=== PATIENT | female | born 1980 | race Caucasian/White ===

== ENCOUNTER 2019-04-01 00:25 | Emergency (ER) | payer MEDICAID ==
[~2019-04-01] VITALS: Ht 170.2 cm; Wt 60.0 kg
[~2019-04-01 00:25] MED LIST: ACET1TAB12 PO; GENT5DRO4 EACHEYE; PANT-47 PO; SUCR1ORA2 PO
[2019-04-01 00:44] VITALS: BP 131/86
[2019-04-01] MEDS ORDERED: PENI-88 PO (01:14)
[2019-04-01] MEDS ORDERED: HYDR-4353 PO (01:14)
[2019-04-01] MEDS ORDERED: morphine 4 MG/ML inj SYRINge IM ONE (01:15)
[2019-04-01] MEDS ORDERED: HYDROcodone/acetaminophen 10/325mg tab PO ONE (01:15)
[2019-04-01] MEDS ORDERED: penicillin V potassium 500mg tablet PO ONE (01:15)
== END 2019-04-01 02:27 | disposition home or self-care (01) ==
LOC: ER 00:26
DX: K08.89 Other specified disorders of teeth and supporting structures (principal); F41.9 Anxiety disorder, unspecified; F32.9 Major depressive disorder, single episode, unspecified; F12.90 Cannabis use, unspecified, uncomplicated; Z88.1 Allergy status to other antibiotic agents; Z79.899 Other long term (current) drug therapy
CPT/HCPCS: 96372; 99283; J2270

== ENCOUNTER 2020-09-24 19:15 | Emergency (ER) | payer MEDICAID ==
[~2020-09-24] VITALS: Ht 170.2 cm; Wt 65.9 kg
--- NOTE | 2020-09-24 20:00 | NUR ---
UNABLE TO GET BP. PT MOVING TOO MC
--- NOTE | 2020-09-24 20:39 | NUR ---
CHENG FATHER OF PT CALLED FOR UPDATE [phone]
--- NOTE | 2020-09-24 20:40 | NUR ---
PT ABLE TO AMBULATE TO DOOR, OPEN AND CLOSE ON OWN
--- NOTE | 2020-09-24 20:55 | NUR ---
PT EXITS ROOM AND IS CRYING STATING SHE IS IN PAIN. I ACKNOWLEDGED PTS COMPLAINT OF PAIN AND EXPLAINED THAT SHE IS NEXT TO BE SEEN PROVIDED A MORE EMERGENT PATIENT DOESN'T PRESENT IN THE MEANTIME. SHE IS UPSET THAT SHE IS BEING ASKED TO WAIT IN HER ROOM. THE DOOR IS CLOSED SECONDARY TO PTS LOUD CRYING DISRUPTING OTHER PATIENTS.
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
[2020-09-24] MEDS ORDERED: normal saline 1000ML IV soln IVB ONE (21:30)
[2020-09-24] MEDS ORDERED: ondansetron/PF 4mg/2ml inj IV ONE (21:30)
[2020-09-24] MEDS ORDERED: morphine 10mg/ml inj. IV ONE ×2 (21:30→21:35)
[2020-09-24] MEDS ORDERED: LORazepam 2 mg/ml vial IV ONE (21:30)
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
[2020-09-24 21:49] LABS: BASOPHILS % (AUTO) 0.5 % (0-1); EOSINOPHILS # (AUTO) 0.1 X10'3 (0-0.9); EOSINOPHILS % (AUTO) 0.8 % (0-6); HEMOGLOBIN 14.4 g/dl (12.0-16.0); LYMPHOCYTES # (AUTO) 2.4 X10'3 (1.1-4.8); LYMPHOCYTES % (AUTO) 26.9 % (21-51); MEAN CORPUSCULAR HEMOGLOBIN 32.8 PG (27.0-31.0); MEAN CORPUSCULAR HGB CONC 34.3 g/dL (33.0-36.5); MEAN CORPUSCULAR VOLUME 95.5 FL (78-98); MEAN PLATELET VOLUME 9.8 FL (7.4-10.4); MONOCYTES # (AUTO) 0.6 X10'3 (0-0.9); MONOCYTES % (AUTO) 7.4 % (2-12); NEUTROPHILS # (AUTO) 5.6 X10'3 (1.8-7.7); NEUTROPHILS % (AUTO) 64.4 % (42-75); PLATELET COUNT 195 X10'3 (140-440); RED BLOOD COUNT 4.39 X10'6 (4.20-5.60); RED CELL DISTRIBUTION WIDTH 12.8 % (11.5-14.5); WHITE BLOOD COUNT 8.8 X10'3 (4.5-11.0)
[2020-09-24 21:50] LABS: URINE HCG NEGATIVE (NEG)
[2020-09-24 21:53] LABS: CLARITY,URINE SLIGHTLY CLOUDY (Clear); COLOR,URINE YELLOW (Yellow); GLUCOSE, URINE NEGATIVE (Neg); KETONES,URINE NEGATIVE (Neg); LEUKOCYTE ESTERASE ,URINE NEGATIVE (Neg); NITRITES, URINE NEGATIVE (Neg); OCCULT BLOOD,URINE NEGATIVE (Neg); PROTEIN,URINE NEGATIVE (Neg); UROBILINOGEN,URINE 0.2 E.U/dL (0.2-1.0)
[2020-09-24 21:57] LABS: ALANINE AMINOTRANSFERASE 23 U/L (12-78); ALBUMIN 3.9 G/DL (3.4-5.0); ALBUMIN/GLOBULIN RATIO 1.1 (1.1-1.5); ALKALINE PHOSPHATASE 93 IU/L (46-116); ANION GAP 13 (8-16); ASPARTATE AMINO TRANSFERASE 23 U/L (10-37); BILIRUBIN,TOTAL 0.3 MG/DL (0.1-1.0); BLOOD UREA NITROGEN 16 MG/DL (7-18); CALCIUM 8.9 MG/DL (8.5-10.1); CHLORIDE 109 MMOL/L (99-107); CREATININE 0.89 MG/DL (0.40-0.90); GLUCOSE 90 MG/DL (70-104); LIPASE 872 U/L (73-393); SODIUM 142 MMOL/L (135-145); TOTAL CARBON DIOXIDE 20.4 MMOL/L (24-32); TOTAL PROTEIN 7.6 G/DL (6.4-8.2); UA COLLECTION TYPE CLN CATCH MIDSTREAM; eGFR 71 ML/MIN
[2020-09-24 21:59] LABS: BACTERIA,URINE FEW /HPF (Neg); MUCUS STRANDS MODERATE /LPF (Neg); RBC,URINE 0-2 /HPF (0-2); SQUAMOUS EPITHELIAL CELL,UR MANY /LPF (FEW); WBC,URINE 0-4 /HPF (0-4)
--- NOTE | 2020-09-24 22:04 | NUR ---
TO CT VIA [facility]
--- NOTE | 2020-09-24 22:38 | NUR ---
call [phone] for ride
[2020-09-24 22:54] LABS: URINE AMPHETAMINE SCREEN NEGATIVE (Neg); URINE BARBITUATE SCREEN NEGATIVE (Neg); URINE BENZODIAZEPINES SCREEN NEGATIVE (Neg); URINE CANNABINOID SCREEN POSITIVE (Neg); URINE COCAINE SCREEN NEGATIVE (Neg); URINE METHADONE SCREEN NEGATIVE (Neg); URINE OPIATE SCREEN POSITIVE (Neg); URINE PHENCYCLIDINE SCREEN NEGATIVE (Neg)
[2020-09-24 23:21] VITALS: BP 101/52
[2020-09-25] MEDS ORDERED: haloperidol lactate 5mg/ml inj IM ONE (00:10)
--- NOTE | 2020-09-25 00:48 | NUR ---
PT REFUSED TO LEAVE. DR YU NOTIFIED. IM DIAZEPAM AND TORODAL ORDERED
[2020-09-25] MEDS ORDERED: diazepam inj 5 MG/ML inj. IM ONE (00:50)
[2020-09-25] MEDS ORDERED: ketorolac trometh. 30mg/ml inj. IM ONE (00:50)
== END 2020-09-25 01:07 | disposition home or self-care (01) ==
LOC: ER 19:16
DX: M54.5 Low back pain (principal); R10.84 Generalized abdominal pain; M54.6 Pain in thoracic spine; F12.90 Cannabis use, unspecified, uncomplicated; Z88.1 Allergy status to other antibiotic agents; Z79.2 Long term (current) use of antibiotics; Z79.899 Other long term (current) drug therapy
CPT/HCPCS: 36415; 74176; 80053; 80305; 81001; 81025; 83690; 85025; 96361; 96372; 96374; 96375; 99285; J1630; J1885; J2060; J2270; J2405; J3360; J7030

== ENCOUNTER 2022-07-26 23:06 | Emergency (ER) | payer MEDICAID ==
[~2022-07-26] VITALS: Ht 170.2 cm; Wt 84.0 kg
[2022-07-26 23:29] LABS: BASOPHILS % (AUTO) 0.3 % (0-1); EOSINOPHILS # (AUTO) 0.1 X10'3 (0-0.9); EOSINOPHILS % (AUTO) 1.1 % (0-6); HEMATOCRIT 40.3 % (35.0-45.0); HEMOGLOBIN 14.3 g/dl (12.0-16.0); LYMPHOCYTES # (AUTO) 0.5 X10'3 (1.1-4.8); LYMPHOCYTES % (AUTO) 11.3 % (21-51); MEAN CORPUSCULAR HEMOGLOBIN 32.7 PG (27.0-31.0); MEAN CORPUSCULAR HGB CONC 35.5 g/dL (33.0-36.5); MEAN CORPUSCULAR VOLUME 92.2 FL (78-98); MONOCYTES # (AUTO) 0.5 X10'3 (0-0.9); MONOCYTES % (AUTO) 10.2 % (2-12); NEUTROPHILS # (AUTO) 3.5 X10'3 (1.8-7.7); NEUTROPHILS % (AUTO) 77.1 % (42-75); PLATELET COUNT 157 X10'3 (140-440); RED BLOOD COUNT 4.37 X10'6 (4.20-5.60); RED CELL DISTRIBUTION WIDTH 12.6 % (11.5-14.5); WHITE BLOOD COUNT 4.5 X10'3 (4.5-11.0)
[2022-07-26 23:41] LABS: ALANINE AMINOTRANSFERASE 53 U/L (12-78); ALBUMIN 3.5 G/DL (3.4-5.0); ALKALINE PHOSPHATASE 126 IU/L (46-116); ANION GAP 7 (8-16); ASPARTATE AMINO TRANSFERASE 50 U/L (10-37); BILIRUBIN,TOTAL 0.2 MG/DL (0.1-1.0); BLOOD UREA NITROGEN 17 MG/DL (7-18); BUN/CREATININE RATIO 22.4 (6.6-38.0); CALCIUM 8.3 MG/DL (8.5-10.1); CHLORIDE 105 MMOL/L (99-107); CREATININE 0.76 MG/DL (0.40-0.90); GLUCOSE 107 MG/DL (70-104); SODIUM 138 MMOL/L (135-145); TOTAL PROTEIN 7.1 G/DL (6.4-8.2); eGFR 84 ML/MIN
[2022-07-26 23:49] LABS: D-DIMER 0.67 MG/L FEU (0-0.50)
--- NOTE | 2022-07-27 00:42 | NUR ---
PT APPEARS TO BE RESTING COMFORTABLY ON GURNEY. SHE IS IN NO APPARENT DISTRESS. HER BREATHING IS UNLABORED AND EVEN.
[2022-07-27 00:55] LABS: MAGNESIUM 1.7 MG/DL (1.5-2.4)
[2022-07-27 01:26] LABS: TOTAL CELLS COUNTED 100
[2022-07-27 01:27] LABS: PLATELET ESTIMATE NORMAL; TOXIC VACUOLATION 1+
[2022-07-27] MEDS ORDERED: proCHLORperazine 10 MG/2 ml inj IV ONE (01:45)
[2022-07-27] MEDS ORDERED: diphenhydrAMINE 50 mg/ml inj IV ONE ×2 (01:45→02:35)
[2022-07-27 02:10] LABS: CLARITY,URINE SLIGHTLY CLOUDY (Clear); COLOR,URINE YELLOW (Yellow); GLUCOSE, URINE NEGATIVE (Neg); KETONES,URINE NEGATIVE (Neg); LEUKOCYTE ESTERASE ,URINE NEGATIVE (Neg); NITRITES, URINE NEGATIVE (Neg); OCCULT BLOOD,URINE TRACE-LYSED (Neg); PH,URINE 6.5 (4.8-8.0); PROTEIN,URINE NEGATIVE (Neg); URINE HCG NEGATIVE (NEG); UROBILINOGEN,URINE 0.2 E.U/dL (0.2-1.0)
[2022-07-27] MEDS ORDERED: ketorolac tromethamine 15mg/ml inj. IV ONE (02:10)
[2022-07-27 02:15] LABS: UA COLLECTION TYPE VOIDED
[2022-07-27 02:16] LABS: BACTERIA,URINE FEW /HPF (Neg); MUCUS STRANDS MANY /LPF (Neg); SQUAMOUS EPITHELIAL CELL,UR MODERATE /LPF (FEW); WBC,URINE 0-4 /HPF (0-4)
[2022-07-27] MEDS ORDERED: iohexol 350MG/ML 100ml bottle IV ONE (02:20)
[2022-07-27] MEDS ORDERED: LORazepam 2 mg/ml vial IV ONE (02:35)
[2022-07-27 04:32] VITALS: BP 109/53
== END 2022-07-27 04:34 | disposition home or self-care (01) ==
LOC: ER 23:07
DX: R07.9 Chest pain, unspecified (principal); R51.9 Headache, unspecified; R00.2 Palpitations; F41.9 Anxiety disorder, unspecified; M54.9 Dorsalgia, unspecified; K21.9 Gastro-esophageal reflux disease without esophagitis; F12.10 Cannabis abuse, uncomplicated; G89.29 Other chronic pain; Z79.899 Other long term (current) drug therapy; Z79.1 Long term (current) use of non-steroidal anti-inflammatories (NSAID)
CPT/HCPCS: 36415; 71045; 71275; 80053; 81001; 81025; 83735; 83880; 84439; 84443; 84484; 85007; 85025; 85379; 93005; 96374; 96375; 99285; J0780; J1200; J1885; J2060; J3490; Q9967

== ENCOUNTER 2022-10-20 20:13 | Emergency (ER) | payer MEDICAID ==
[~2022-10-20] VITALS: Ht 170.2 cm; Wt 75.0 kg
[2022-10-20 20:35] VITALS: BP 136/72
[2022-10-20] MEDS ORDERED: ketorolac trometh. 30mg/ml inj. IM ONE (21:25)
[2022-10-20] MEDS ORDERED: bacitracin 15gm ointment TP ONE (21:40)
== END 2022-10-20 22:07 | disposition home or self-care (01) ==
LOC: ER 20:14
DX: S63.591A Other specified sprain of right wrist, initial encounter (principal); G89.29 Other chronic pain; F41.9 Anxiety disorder, unspecified; F32.9 Major depressive disorder, single episode, unspecified; K21.9 Gastro-esophageal reflux disease without esophagitis; F12.90 Cannabis use, unspecified, uncomplicated; Z98.890 Other specified postprocedural states; Z87.891 Personal history of nicotine dependence; Z79.899 Other long term (current) drug therapy; W18.39XA Other fall on same level, initial encounter; Y93.89 Activity, other specified; Y92.89 Other specified places as the place of occurrence of the external cause; Y99.8 Other external cause status
CPT/HCPCS: 73130; 96372; 99283; J1885